=== PATIENT | female | born 1940 | race Caucasian/White ===

== ENCOUNTER → 2016-10-03 | Outpatient (CLI) | payer MEDICARE ==
[~2016-10-03] MED LIST: ACET50TA PO; ALPH0.1S OD; CHOL4POW4 PO; CIPR500T3 PO; COSOPHPLUS OU; DORZ2SOL5 OU; FLAG500T PO; MULTTAB4 PO; NORC5TAB PO; PRED1SUS6 OS; PROCAER4 PR; TRAV0.00 OU; TRUS1SOL OU; VITA500047 PO; [UNRECOGNIZED DRUG - OTHER] OS
--- NOTE | 2016-10-03 14:51 | REPMRS ---
Patient History The patient states she had a clinical breast exam in 09/02 Patient is postmenopausal, has history of colorectal cancer at age 64, had previous chest radiation therapy at age 52, had previous chemotherapy at age 52, has history of cancer in the left breast at age 51, and is nulliparous. No known family history of cancer. Malignant excisional biopsy of the left breast, 1991. Radiation therapy of the left breast, 1991. Took tamoxifen for 1 year. Digital Woman Screen Mammo: October 03, 2016 - Exam #: [id number] Bilateral CC and MLO view(s) were taken. Technologist: Radha Faria, Technologist Prior study comparison: October 12, 2015, digital woman screen mammo performed at [facility] to [facility]. October 09, 2014, digital woman screen mammo performed at [facility] to [facility]. October 08, 2013, bilateral bilat screen digital mammo, performed at [facility] ([facility] FINDINGS: The breast tissue is heterogeneously dense. This may lower the sensitivity of mammography. There is a moderate amount of heterogeneously dense fibroglandular tissue which is fairly symmetric. There is no interval development of dominant mass, architectural distortion, or clustered microcalcification typical of malignancy. There has been no change in the appearance of the mammogram from the prior studies. ASSESSMENT: BI-RADS/ACR category 1 mammogram. Negative. Recommendation Routine screening mammogram of both breasts in 1 year (for women over age 40). This mammogram was interpreted with the aid of an FDA-approved computer-aided dectection system. Electronically Signed By: Pascual Marshall MD 10/03/16 1590
== END ==
LOC: M WHC 13:29
PROVIDERS: ATTEND Internal Medicine Medical Oncology
DX: Z12.31 Encounter for screening mammogram for malignant neoplasm of breast (principal); Z85.3 Personal history of malignant neoplasm of breast

== ENCOUNTER → 2018-09-28 | Outpatient (CLI) | payer MEDICARE ==
[~2018-09-28] MED LIST changes: +PROC1AER16 PR; -PROCAER4 PR
--- NOTE | 2018-09-28 09:58 | REP ---
CERVICAL SPINE, SEVEN VIEWS: HISTORY: Cervicalgia. There is no acute fracture or subluxation. The C3-4 through C6-7 intervertebral discs are decreased in height consistent with disc degeneration. Osteophytes are present on C3 through C7. There is narrowing of the C3 through C6 neural foramina secondary to uncinate process hypertrophy. IMPRESSION: Degenerative change as described above. Electronically Signed by Claudio Noriega MD 09/28/2018 10:01 A
== END ==
LOC: M WUC 09:13
PROVIDERS: ATTEND Internal Medicine
DX: M50.320 Other cervical disc degeneration, mid-cervical region, unspecified level (principal); M25.78 Osteophyte, vertebrae

== ENCOUNTER 2018-11-02 13:09 | Emergency (ER) | payer MEDICARE ==
[~2018-11-02] VITALS: Ht 162.6 cm; Wt 61.4 kg
[2018-11-02] MEDS ORDERED: BRIM0.2S13 (13:24)
[2018-11-02] MEDS ORDERED: PRED10TA2 (13:24)
[2018-11-02] MEDS ORDERED: VYZU0.02 (13:24)
[2018-11-02] MEDS ORDERED: LOTE0.5S (13:24)
[2018-11-02] MEDS ORDERED: diphenhydrAMINE INJ 50MG/ML VIAL (J1200) IV STA (13:44)
[2018-11-02] MEDS ORDERED: methylPREDNISolone INJ 125 MG/2 ML VIAL (J2930) IV ONE (13:45)
[2018-11-02] MEDS ORDERED: FAMOTIDINE INJ 20MG/2ML VIAL (S0028) IVP ONE (13:45)
[2018-11-02 14:07] LABS: BASO % 0.2 % (0.0-1.0); EOS % 0.2 % (0.0-3.0); HEMATOCRIT 35.4 % (36.0-47.0); HEMOGLOBIN 11.9 g/dl (12.0-15.5); LYMPH # 1.2 10^3/uL (1.5-4.5); LYMPH % 9.5 % (24.0-44.0); MEAN CORPUSCULAR HEMOGLOBIN 30.8 pg (27.0-33.0); MEAN CORPUSCULAR HGB CONC 33.6 g/dl (32.0-36.5); MEAN CORPUSCULAR VOLUME 91.7 fl (80.0-96.0); MONO # 0.3 10^3/uL (0.0-0.8); MONO % 2.2 % (0.0-5.0); NEUTROPHILS # 10.9 10^3/uL (1.8-7.7); NEUTROPHILS % 87.1 % (36.0-66.0); PLATELET COUNT, AUTOMATED 420 10^3/uL (150-450); RED BLOOD COUNT 3.86 10^6/uL (4.00-5.40); WHITE BLOOD COUNT 12.5 10^3/uL (4.0-10.0)
[2018-11-02 14:43] LABS: BLOOD UREA NITROGEN 12 MG/DL (7-18); CALCIUM LEVEL 9.6 MG/DL (8.8-10.2); CARBON DIOXIDE LEVEL 23 MEQ/L (21-32); CHLORIDE LEVEL 102 MEQ/L (98-107); CREATININE FOR GFR 0.68 MG/DL (0.55-1.30); GLOMERULAR FILTRATION RATE > 60.0 (>39); GLUCOSE, FASTING 118 MG/DL (70-100); SODIUM LEVEL 135 MEQ/L (136-145)
[2018-11-02 15:26] VITALS: BP 160/81
[2018-11-02] MEDS ORDERED: amLODIPine 5 MG TAB PO ONE (15:30)
[2018-11-02 15:39] LABS: HEMOGLOBIN A1c 6.3 %
[2018-11-02] MEDS ORDERED: FAMOTIDINE IV BAG 20 MG in APPROPRIATE DILUENT 1 EA IV ONE (15:45)
--- NOTE | 2018-11-02 15:57 | REP ---
CT Head without contrast HISTORY: Visual change COMPARISON: 08/31/2018 An area of decreased attenuation is present in the right basal ganglia. This represents an old lacunar infarction. Areas of decreased attenuation are present in the periventricular and subcortical white matter. This represents small-vessel ischemic disease. There is no intraparenchymal hemorrhage, acute infarct, mass or midline shift. The ventricular system is normal and cortical sulci as well as subarachnoid space in the posterior fossa are dilated consistent with minimal volume loss. There is no extra cerebral collection. There is no fracture. Those will thickening is present in the right ethmoid sinus. IMPRESSION: 1. Old right basal ganglia lacunar infarction. 2. Small vessel ischemic disease. 3. Minimal volume loss. Electronically Signed by Claudio Noriega MD 11/02/2018 03:49 P
[2018-11-02 16:15] VITALS: BP 142/71
[2018-11-02] MEDS ORDERED: EPIP0.3I2 IM (16:27)
[2018-11-02] MEDS ORDERED: ZANT300T9 PO (16:27)
[2018-11-02] MEDS ORDERED: NORV5TAB PO (16:28)
[2018-11-02] MEDS ORDERED: FLON1SPR NARES (16:37)
== END 2018-11-02 16:48 | disposition home or self-care (01) ==
LOC: M ED 13:09
DX: R22.0 Localized swelling, mass and lump, head (principal)
CPT/HCPCS: 70450; 80048; 81001; 83036; 85025; 96374; 96375; 99284; J1200; J2930

== ENCOUNTER 2018-12-12 09:30 | Outpatient (RCR) | payer MEDICARE ==
[~2018-12-12 09:30] MED LIST changes: +BRIM0.2S13; +EPIP0.3I2 IM; +FLON1SPR NARES; +LOTE0.5S; +NORV5TAB PO; +PRED10TA2; +VYZU0.02; +ZANT300T9 PO
== END 2018-12-16 ==
LOC: M PT 09:30
PROVIDERS: ATTEND Nurse Practitioner Family
DX: M47.812 Spondylosis without myelopathy or radiculopathy, cervical region (principal)

== ENCOUNTER → 2019-08-25 | Outpatient (CLI) | payer MEDICARE ==
[~2019-08-25] MED LIST changes: -ACET50TA PO; -COSOPHPLUS OU; +DORZ2SOL11 OU; +MAPA500T17 PO; +VIGA0.02 OS; -[UNRECOGNIZED DRUG - OTHER] OS
--- NOTE | 2019-08-25 15:25 | REP ---
CHEST PA AND LATERAL: 08/25/2019. COMPARISON: AP chest 05/22/2014. CLINICAL HISTORY: Hyponatremia. Hypo-osmolality. FINDINGS: PA CHEST: Lungs only marginally adequate in the degree of inflation. Asymmetric breast size and axillary surgical clips on the left suggest prior left breast surgery. There is no pleural effusion, lateral pleural thickening, apical scarring, or pneumothorax. There is no infiltrate, atelectasis, or mass. No cardiomegaly or edema. The aorta is tortuous, calcified at the arch but without gross aneurysm. There is some elevation of left mainstem bronchus suggesting some left atrial enlargement. No vascular redistribution or pulmonary edema. Bony thorax shows marginal osteophytes throughout the mid and lower thoracic spine, but no compression deformity. IMPRESSION: 1. No acute cardiopulmonary change. 2. Tortuous calcified aorta with ectasia. No gross aneurysm. 3. Levorotatory curvature thoracic spine into the lumbar spine with a dextrorotatory compensatory curve of the lumbar region. 4. Axillary surgical clips on the left. Degenerative changes spine and shoulders. Electronically Signed by Phil Degroot MD 08/25/2019 05:22 P
[2019-08-25 19:57] LABS: BLOOD UREA NITROGEN 13 MG/DL (7-18); CALCIUM LEVEL 10.1 MG/DL (8.8-10.2); CARBON DIOXIDE LEVEL 28 MEQ/L (21-32); CHLORIDE LEVEL 102 MEQ/L (98-107); CREATININE FOR GFR 0.86 MG/DL (0.55-1.30); GLOMERULAR FILTRATION RATE > 60.0 (>39); GLUCOSE, FASTING 113 MG/DL (70-100); POTASSIUM SERUM 4.7 MEQ/L (3.5-5.1); SODIUM LEVEL 137 MEQ/L (136-145)
== END ==
LOC: M WUC 11:40
PROVIDERS: ATTEND Internal Medicine
DX: E87.1 Hypo-osmolality and hyponatremia (principal); R42 Dizziness and giddiness

== ENCOUNTER 2019-09-06 14:24 | Emergency (ER) | payer MEDICARE ==
[~2019-09-06] VITALS: Ht 162.6 cm; Wt 61.4 kg
[2019-09-06 15:15] LABS: BASO # 0.1 10^3/uL (0.0-0.2); BASO % 0.6 % (0.0-1.0); EOS # 0.1 10^3/uL (0.0-0.5); EOS % 1.5 % (0.0-3.0); HEMATOCRIT 39.3 % (36.0-47.0); HEMOGLOBIN 13.3 g/dl (12.0-15.5); LYMPH # 1.9 10^3/uL (1.5-5.0); MEAN CORPUSCULAR HEMOGLOBIN 31.4 pg (27.0-33.0); MEAN CORPUSCULAR HGB CONC 33.8 g/dl (32.0-36.5); MEAN CORPUSCULAR VOLUME 92.7 fl (80.0-96.0); MONO # 1.1 10^3/uL (0.0-0.8); MONO % 11.1 % (0.0-5.0); NEUTROPHILS # 6.3 10^3/uL (1.5-8.5); NEUTROPHILS % 65.2 % (36.0-66.0); PLATELET COUNT, AUTOMATED 360 10^3/uL (150-450); RED BLOOD COUNT 4.24 10^6/uL (4.00-5.40); WHITE BLOOD COUNT 9.7 10^3/uL (4.0-10.0)
[2019-09-06 15:26] LABS: INR 1.07; PARTIAL THROMBOPLASTIN TIME 32.6 SECONDS (25.0-38.4); PROTHROMBIN TIME 13.6 SECONDS (11.8-14.0)
[2019-09-06 15:47] LABS: ALBUMIN 3.8 GM/DL (3.2-5.2); ALT/SGPT 21 U/L (12-78); BILIRUBIN,DIRECT < 0.1 MG/DL (0.0-0.2); BILIRUBIN,TOTAL 0.4 MG/DL (0.2-1.0); BLOOD UREA NITROGEN 17 MG/DL (7-18); CALCIUM LEVEL 10.3 MG/DL (8.8-10.2); CARBON DIOXIDE LEVEL 23 MEQ/L (21-32); CHLORIDE LEVEL 101 MEQ/L (98-107); CPK CREATINE PHOSPHOKINASE 64 U/L (26-192); GLOMERULAR FILTRATION RATE > 60.0 (>39); GLUCOSE, FASTING 110 MG/DL (70-100); LIPASE 119 U/L (73-393); POTASSIUM SERUM 4.5 MEQ/L (3.5-5.1); SODIUM LEVEL 135 MEQ/L (136-145); TROPONIN I < 0.02 NG/ML (< 0.10)
--- NOTE | 2019-09-06 15:51 | REP ---
CHEST, TWO VIEWS: COMPARISON: 08/25/2019. There is no evidence of acute infiltrate. No pleural effusion is seen. The heart is normal in size. The mediastinal silhouette is unremarkable. The visualized osseous structures are intact. There is calcified tortuous aorta. There are degenerative changes of the spine. IMPRESSION: No acute pulmonary disease. Electronically Signed by Eyad Ndiaye MD 09/06/2019 04:57 P
[2019-09-06 15:53] LABS: CK-MB VALUE MASS 1.7 NG/ML (<3.6); FREE T4 0.93 NG/DL (0.76-1.46); MB/CK RELATIVE INDEX 2.66 (< OR =4)
--- NOTE | 2019-09-06 15:53 | REP ---
CT brain: 09/06/2019. Indication: Ataxia. Comparison: 11/02/2018. Technique: Unenhanced axial CT images of the brain were obtained from skull base to vertex with coronal reconstructions provided. Findings: There is no acute intracranial hemorrhage, acute cortical infarction, mass effect or hydrocephalous. Mild chronic appearing paranasal sinus mucosal disease is noted within the ethmoid air cells. Diffuse volume loss is noted. Prominent Virchow-Eddie space is present within the inferior right basal ganglia. Patchy areas of cerebral white matter hypoattenuation are present. Impression: No acute intracranial process. Volume loss and sequelae of chronic microangiopathic ischemic disease. Electronically Signed by Johan Powers DO 09/06/2019 03:44 P
[2019-09-06] MEDS ORDERED: SULF500T2 PO (15:54)
[2019-09-06] MEDS ORDERED: LATA0.0015 OD (15:54)
[2019-09-06] MEDS ORDERED: FLUO25OPD OS (15:54)
[2019-09-06] MEDS ORDERED: NS 1,000 ML IV SCH (16:14)
[2019-09-06 20:45] VITALS: BP 127/64
[2019-09-06 21:13] LABS: CK-MB VALUE MASS 2.3 NG/ML (<3.6); CPK CREATINE PHOSPHOKINASE 87 U/L (26-192); MB/CK RELATIVE INDEX 2.64 (< OR =4); TROPONIN I < 0.02 NG/ML (< 0.10)
[2019-09-06 21:37] VITALS: O2SAT 97
--- NOTE | 2019-09-06 22:51 | ECGEPIP ---
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
--- NOTE | 2019-09-06 23:03 | ECGEPIP ---
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
== END 2019-09-06 21:54 | disposition home or self-care (01) ==
LOC: M ED 14:24
DX: R06.02 Shortness of breath (principal); Z88.1 Allergy status to other antibiotic agents; Z88.8 Allergy status to other drugs, medicaments and biological substances; Z87.891 Personal history of nicotine dependence; Z79.899 Other long term (current) drug therapy

== ENCOUNTER → 2021-05-10 | Outpatient (CLI) | payer MEDICARE ==
[~2021-05-10] MED LIST changes: +FLUO25OPD OS; +LATA0.0015 OD; +PROHANCE 279.3MG/ML 15ML VIAL ONE; +SULF500T2 PO
--- NOTE | 2021-05-10 13:30 | REPVR ---
PROCEDURE INFORMATION: Exam: MR Head Without and With Contrast Exam date and time: 05/10/2021 11:10 AM Age: 81 years old Clinical indication: Dizziness; Additional info: Vision changes tinitis light headedness TECHNIQUE: Imaging protocol: MR of the head without and with intravenous contrast. Contrast material: PROHANCE; Contrast volume: 12 ml; Contrast route: INTRAVENOUS (IV); COMPARISON: CT Head without contrast 09/06/2019 3:30 PM FINDINGS: Brain: No acute infarct identified on the diffusion-weighted imaging. The brain demonstrates mild, generalized volume loss. The T2 weighted imaging demonstrates patchy foci of increased signal intensity in the deep and subcortical white matter most likely representing [id number] chronic small vessel ischemic change. Likely perivascular space in the right external capsule. No pathologic intracranial enhancement. Cerebral ventricles: The ventricles are mildly enlarged in keeping with volume loss. Bones/joints: Unremarkable. Paranasal sinuses: Mild ethmoid mucosal thickening. Mastoid air cells: Normal as visualized. No mastoid effusion. Orbital cavity: Thinning of the lenses of the globes consistent with prior lens surgery. Soft tissues: Unremarkable. IMPRESSION: No acute intracranial abnormality. Electronically signed by: Starla Washington On 05/10/2021 13:30:10 PM
== END ==
LOC: M PLAIMG 10:00
PROVIDERS: ATTEND Internal Medicine
DX: R42 Dizziness and giddiness (principal); E87.1 Hypo-osmolality and hyponatremia
CPT/HCPCS: 70553; A9576

== ENCOUNTER → 2021-07-02 | Outpatient (CLI) | payer MEDICARE ==
[~2021-07-02] MED LIST changes: +ISOVUE-370 76% 100ML VIAL As Ordered ONE; -PROHANCE 279.3MG/ML 15ML VIAL ONE
--- NOTE | 2021-07-02 15:44 | REP ---
INDICATION: HYPONITREMIA/HYPERCLACEMIA, R/O NEOPLASM COMPARISON: CT chest report dated 06/08/2007 TECHNIQUE: Axial contrast enhanced images from the thoracic inlet to the upper abdomen with coronal and sagittal reformations using 75 ml Isovue 370 intravenous contrast material. This CT examination was performed using the following dose reduction techniques: Automated exposure control, adjustment of mA and/or kv according to the patient's size, and use of iterative reconstruction technique. FINDINGS: Lung chaparro demonstrate chronic age-related interstitial changes. No acute consolidation, suspicious nodule or mass lesion. No effusion. No pneumothorax. Tracheobronchial tree is patent. No significant axillary, hilar, or mediastinal adenopathy. Calcified lymph nodes suggest prior granulomatous disease. Atherosclerotic changes to the thoracic aorta and coronary arteries are appreciated without aortic aneurysm or dissection. No cardiomegaly or pericardial effusion. Surrounding musculoskeletal structures are intact and without acute osseous abnormality. Limited upper abdomen demonstrates normal bilateral adrenal glands and midline ventral hernia containing mesenteric fat. IMPRESSION: 1. No acute mediastinal or pleuroparenchymal process appreciated. 2. Upper abdomen demonstrates supraumbilical ventral midline fat containing hernia measuring at least 4.6 cm. <Electronically signed by Basilio Hurst > 07/02/21 [id number]
== END ==
LOC: M RAD 14:59
PROVIDERS: ATTEND Internal Medicine
DX: E22.2 Syndrome of inappropriate secretion of antidiuretic hormone (principal)
CPT/HCPCS: 71260; Q9967

== ENCOUNTER → 2021-10-28 | Outpatient (REF) | payer MEDICARE ==
[~2021-10-28] MED LIST changes: -ISOVUE-370 76% 100ML VIAL As Ordered ONE
[2021-10-28 17:53] LABS: FREE T4 0.94 NG/DL (0.76-1.46); THYROID STIMULATING HORMONE 2.03 uIU/ML (0.358-3.740)
[2021-10-28 17:54] LABS: CORTISOL PM 16.8 UG/DL (3.1-16.7)
== END ==
LOC: M LAB REF 16:37
PROVIDERS: ATTEND Internal Medicine Nephrology
DX: E87.1 Hypo-osmolality and hyponatremia (principal); E27.49 Other adrenocortical insufficiency; E03.9 Hypothyroidism, unspecified

== ENCOUNTER 2022-08-30 11:06 | Emergency (ER) | payer MEDICARE ==
[~2022-08-30] VITALS: Ht 162.6 cm; Wt 62.7 kg
[2022-08-30] MEDS ORDERED: NS 1,000 ML IV ONE (13:00)
[2022-08-30 13:37] LABS: BASO # 0.1 10^3/uL (0.0-0.2); BASO % 0.7 % (0.0-1.0); EOS % 0.1 % (0.0-3.0); HEMATOCRIT 40.1 % (36.0-47.0); HEMOGLOBIN 13.4 g/dl (12.0-15.5); LYMPH # 1.7 10^3/uL (1.5-5.0); LYMPH % 9.7 % (24.0-44.0); MEAN CORPUSCULAR HEMOGLOBIN 31.2 pg (27.0-33.0); MEAN CORPUSCULAR HGB CONC 33.4 g/dl (32.0-36.5); MEAN CORPUSCULAR VOLUME 93.3 fl (80.0-96.0); MONO % 13.4 % (2.0-8.0); NEUTROPHILS % 74.7 % (36.0-66.0); PLATELET COUNT, AUTOMATED 485 10^3/uL (150-450); WHITE BLOOD COUNT 17.4 10^3/uL (4.0-10.0)
[2022-08-30 14:06] LABS: CK-MB VALUE MASS 1.6 NG/ML (<3.6)
[2022-08-30 14:09] LABS: BILIRUBIN,DIRECT 0.2 MG/DL (<0.4)
[2022-08-30 14:11] LABS: ALBUMIN 3.2 G/DL (3.2-5.2); ALKALINE PHOSPHATASE 70 U/L (46-116); ALT/SGPT 28 U/L (7.0-40); AST/SGOT 38 U/L (<34); BILIRUBIN,TOTAL 0.4 MG/DL (0.3-1.2); BLOOD UREA NITROGEN 24 MG/DL (9-23); CALCIUM LEVEL 9.8 MG/DL (8.3-10.6); CARBON DIOXIDE LEVEL 32 MMOL/L (20-31); CHLORIDE LEVEL 86 MMOL/L (98-107); CPK CREATINE PHOSPHOKINASE 100 U/L (34-145); CREATININE FOR GFR 0.73 MG/DL (0.55-1.30); GLOMERULAR FILTRATION RATE > 60.0 (>32); GLUCOSE, FASTING 124 MG/DL (74-106); POTASSIUM SERUM 3.2 MMOL/L (3.5-5.1); SODIUM LEVEL 130 MMOL/L (136-145); TOTAL PROTEIN 7.1 G/DL (5.7-8.2)
[2022-08-30 14:12] LABS: MONO # 2.3 10^3/uL (0.0-0.8)
[2022-08-30] MEDS ORDERED: NS 500 ML IV ONE (15:10)
[2022-08-30] MEDS ORDERED: MECLIZINE 25 MG TABLET PO ONE (15:55)
[2022-08-30 16:43] LABS: CK-MB VALUE MASS 1.4 NG/ML (<3.6)
[2022-08-30 16:54] LABS: MB/CK RELATIVE INDEX 1.34 (< OR =4)
[2022-08-30] MEDS ORDERED: NITR1CAP11 PO (18:31)
[2022-08-30 18:42] VITALS: BP 143/67
== END 2022-08-30 19:10 | disposition home or self-care (01) ==
LOC: M ED 11:06
DX: N39.0 Urinary tract infection, site not specified (principal); E86.0 Dehydration; R42 Dizziness and giddiness; R90.82 White matter disease, unspecified; R00.0 Tachycardia, unspecified; E78.5 Hyperlipidemia, unspecified; H40.9 Unspecified glaucoma; Z85.038 Personal history of other malignant neoplasm of large intestine; Z85.3 Personal history of malignant neoplasm of breast; Z88.1 Allergy status to other antibiotic agents; Z79.899 Other long term (current) drug therapy

== ENCOUNTER 2024-12-17 14:41 | Emergency (ER) | payer MEDICARE ==
[~2024-12-17 14:41] MED LIST changes: +NITR100C3 PO
[2024-12-17 16:20] LABS: BASO # 0.1 10^3/uL (0.0-0.2); BASO % 0.8 % (0.0-1.0); EOS # 0.2 10^3/uL (0.0-0.5); EOS % 2.1 % (0.0-3.0); HEMATOCRIT 41.8 % (36.0-47.0); HEMOGLOBIN 14.5 g/dl (12.0-15.5); LYMPH # 1.8 10^3/uL (1.5-5.0); MEAN CORPUSCULAR HEMOGLOBIN 33.3 pg (27.0-33.0); MEAN CORPUSCULAR HGB CONC 34.7 g/dl (32.0-36.5); MEAN CORPUSCULAR VOLUME 96.1 fl (80.0-96.0); MONO % 8.8 % (2.0-8.0); NEUTROPHILS # 7.8 10^3/uL (1.5-8.5); NEUTROPHILS % 70.1 % (36.0-66.0); PLATELET COUNT, AUTOMATED 341 10^3/uL (150-450); RED BLOOD COUNT 4.35 10^6/uL (4.00-5.40); WHITE BLOOD COUNT 11.2 10^3/uL (4.0-10.0)
[2024-12-17 16:33] LABS: INR 0.98; PARTIAL THROMBOPLASTIN TIME 32.5 SECONDS (24.8-34.2); PROTHROMBIN TIME 13.3 SECONDS (12.5-14.5)
[2024-12-17 16:45] LABS: BLOOD UREA NITROGEN 18 MG/DL (9-23); CALCIUM LEVEL 9.9 MG/DL (8.3-10.6); CARBON DIOXIDE LEVEL 25 MMOL/L (20-31); CHLORIDE LEVEL 100 MMOL/L (98-107); CK-MB VALUE MASS 1.7 NG/ML (<3.6); CREATININE FOR GFR 0.79 MG/DL (0.55-1.30); GLOMERULAR FILTRATION RATE > 60.0 (>32); GLUCOSE, FASTING 98 MG/DL (74-106); POTASSIUM SERUM 3.7 MMOL/L (3.5-5.1); SODIUM LEVEL 135 MMOL/L (136-145)
[2024-12-17 16:48] LABS: CPK CREATINE PHOSPHOKINASE 86 U/L (34-145); MB/CK RELATIVE INDEX 1.97 (< OR =4)
[2024-12-17 18:07] VITALS: BP 164/84; TEMP 97.2; O2SAT 98
== END 2024-12-17 18:12 | disposition home or self-care (01) ==
LOC: EDBD 14:41 → M ED 14:41
DX: S02.2XXA Fracture of nasal bones, initial encounter for closed fracture (principal); S01.81XA Laceration without foreign body of other part of head, initial encounter; Y92.9 Unspecified place or not applicable; Y93.9 Activity, unspecified; Y99.9 Unspecified external cause status; W01.0XXA Fall on same level from slipping, tripping and stumbling without subsequent striking against object, initial encounter; Z85.038 Personal history of other malignant neoplasm of large intestine; Z88.1 Allergy status to other antibiotic agents; Z88.8 Allergy status to other drugs, medicaments and biological substances; Z79.899 Other long term (current) drug therapy

== ENCOUNTER → 2025-01-21 | Outpatient (REF) | payer MEDICARE ==
[2025-01-21 18:32] LABS: CALCIUM LEVEL 9.7 MG/DL (8.3-10.6); CREATININE FOR GFR 0.73 MG/DL (0.55-1.30); GLOMERULAR FILTRATION RATE 82.1 (>32); POTASSIUM SERUM 4.6 MMOL/L (3.5-5.1)
== END ==
LOC: M LABWUC 17:34
PROVIDERS: ATTEND Internal Medicine
DX: S02.2XXD Fracture of nasal bones, subsequent encounter for fracture with routine healing (principal)